=== PATIENT | male | born 1985 | race Caucasian/White ===

== ENCOUNTER 2017-04-24 08:58 | Emergency (ER) | payer OTHER ==
[~2017-04-24] VITALS: Ht 165.1 cm; Wt 56.7 kg
[~2017-04-24 08:58] MED LIST: PROMETHAZINE W118 ML PO; PROVENTIL3 ML/2.5 M IH; VENTOLIN HFA18 GM IH; ZITHROMAX500 MG PO
[2017-04-24] MEDS ORDERED: CLARITIN10 M1 (09:32)
== END 2017-04-24 18:24 | disposition home or self-care (01) ==
LOC: ER 08:58
DX: J45.998 Other asthma (principal); G43.909 Migraine, unspecified, not intractable, without status migrainosus; J32.8 Other chronic sinusitis

== ENCOUNTER 2017-06-22 01:59 | Emergency (ER) | payer OTHER ==
[~2017-06-22] VITALS: Ht 165.1 cm; Wt 54.4 kg
[~2017-06-22 01:59] MED LIST changes: +CLARITIN10 M1
[2017-06-22] MEDS ORDERED: CLARINEX-D 121 EACH PO (04:13)
[2017-06-22] MEDS ORDERED: ALBUTEROL2.5 MG/3 M IH (04:13)
[2017-06-22] MEDS ORDERED: KETO10TA2 PO (04:19)
== END 2017-06-22 04:24 | disposition home or self-care (01) ==
LOC: ER 01:59
DX: J32.8 Other chronic sinusitis (principal); J45.998 Other asthma